=== PATIENT | female | born 1995 | race Caucasian/White ===

== ENCOUNTER 2022-11-26 20:24 | Emergency (ER) | payer BC, OTHER ==
[2022-11-26] MEDS ORDERED: Erythromycin Base 0.5% Oint 1 GM TUBE ONE (21:40)
== END 2022-11-26 21:45 | disposition home or self-care (01) ==
LOC: NAV ERS 20:24
DX: H10.31 Unspecified acute conjunctivitis, right eye (principal); I10 Essential (primary) hypertension
CPT/HCPCS: 99282

== ENCOUNTER 2023-01-14 12:49 | Emergency (ER) | payer BC, OTHER ==
[2023-01-14] MEDS ORDERED: Fluorescein Opthalmic Strip ONE (13:05)
[2023-01-14] MEDS ORDERED: Tetracaine 0.5% PF 4 ML BOT ONE (13:05)
== END 2023-01-14 13:50 | disposition home or self-care (01) ==
LOC: NAV ERS 12:49
DX: H16.001 Unspecified corneal ulcer, right eye (principal); H10.9 Unspecified conjunctivitis
CPT/HCPCS: 99283

== ENCOUNTER 2024-03-16 13:46 | Emergency (ER) | payer OTHER, SELFPAY ==
[2024-03-16] MEDS ORDERED: Dexamethasone 4 mg/ml Vial ONE (15:20)
[2024-03-16] MEDS ORDERED: Ketorolac Tromethamine 30 MG (1 mL) VIAL ONE (15:20)
[2024-03-16] MEDS ORDERED: Acetaminophen 500 MG TAB ONE (15:32)
== END 2024-03-16 17:01 | disposition home or self-care (01) ==
LOC: NAV ERS 13:46
DX: J10.1 Influenza due to other identified influenza virus with other respiratory manifestations (principal)
CPT/HCPCS: 71045; 87400; 87426; 96372; J1100; J1885

== ENCOUNTER 2024-04-01 17:59 | Emergency (ER) | payer OTHER ==
[2024-04-01] MEDS ORDERED: Ketorolac Tromethamine 30 MG (1 mL) VIAL ONE (18:24)
[2024-04-01] MEDS ORDERED: Sodium Chloride 0.9% 1,000 ML ONE (18:24)
[2024-04-01 18:41] LABS: #Basophils 0.1 thou/uL (0.0-0.2); #Eosinophils 0.3 thou/uL (0.0-0.7); #Monocytes 0.5 thou/uL (0.11-0.59); #Neutrophils 3.5 thou/uL (1.40-6.50); %Basophils 1.1 % (0.0-1.0); %Eosinophils 5.4 % (0.0-10.0); %Lymphocytes 31.4 % (21.0-51.0); %Monocytes 7.9 % (0.0-10.0); %Neutrophils 54.2 % (42.0-75.0); Hematocrit 47.5 % (36.0-47.0); Hemoglobin 15.7 g/dL (12.0-16.0); Mean Corpuscular HGB CONC 33.1 g/dL (32.0-36.0); Mean Corpuscular Hemoglobin 29.5 pg (27.0-31.0); Mean Platelet Volume 9.4 fL (7.4-10.4); Platelet Count 281 10x3/uL (130-400); RBC Distribution Width 11.2 % (11.5-14.5); Red Blood Cell (RBC) Count 5.33 mill/uL (4.20-5.40); White Blood Cell (WBC) Count 6.4 10x3/uL (4.8-10.8)
[2024-04-01 18:52] LABS: Bilirubin Negative (Negative); Blood, Urine Negative (Negative); Glucose, Urine (Dipstick) Negative (Negative); Ketone, Urine Negative (Negative); Leukocyte Trace (Negative); Nitrite Negative (Negative); Protein, Urine (Dipstick) Negative (Neg-Trace); Specific Gravity, Urine 1.015 (1.005-1.030); Urobilinogen 0.2 mg/dL (Less than 2)
[2024-04-01 18:55] LABS: Clarity Hazy (Clear)
[2024-04-01 19:02] LABS: ALT (SGPT) 64 U/L (8-55); AST (SGOT) 67 U/L (5-34); Albumin 3.9 g/dL (3.5-5.0); Alkaline Phosphatase 94 U/L (40-110); Anion Gap 16 mmol/L (10-20); BUN (Urea Nitrogen) 5 mg/dL (7.0-18.7); Bilirubin, Total 1.1 mg/dL (0.2-1.2); Calc. Creatinine Clearance 0 mL/min (70-130); Calcium 9.6 mg/dL (7.8-10.44); Carbon Dioxide 22 mmol/L (22-29); Chloride 104 mmol/L (98-107); Estimated GFR 121; Globulin 3.9 g/dL (2.4-3.5); Glucose 100 mg/dL (70-105); Magnesium 1.8 mg/dL (1.6-2.6); Protein, Total 7.8 g/dL (6.0-8.3); Sodium 138 mmol/L (136-145)
[2024-04-01 19:05] LABS: Pregnancy Test - Urine (BHCG) Negative (Negative); Pregu Control Background? CLEAR/WHITE (CLR/WHITE); Pregu Control Bar Appear? YES (CONTROL BAR); Specific Gravity 1.015 (1.002-1.036)
[2024-04-01 19:08] LABS: Bacteria/HPF 1+ HPF (None Seen); CAUTI Indications for Culture Fever or rigors; RBC/HPF 0-3 HPF (0-3); Squamous Epithelial 0-3 HPF (0-3)
[2024-04-01 19:09] LABS: Urine Culture Reflex No No
== END 2024-04-01 19:44 | disposition home or self-care (01) ==
LOC: NAV ERS 17:59
DX: J18.9 Pneumonia, unspecified organism (principal); I10 Essential (primary) hypertension
CPT/HCPCS: 71045; 80053; 81001; 81025; 83605; 83735; 85025; 96374; J1885; J7030

== ENCOUNTER 2024-04-12 15:06 | Emergency (ER) | payer OTHER ==
[2024-04-12] MEDS ORDERED: Ipratropium/Albuterol 3 ML NEB ONE (15:52)
[2024-04-12] MEDS ORDERED: Sodium Chloride 0.9% 1,000 ML ONE (15:53)
[2024-04-12 16:13] LABS: #Basophils 0.1 thou/uL (0.0-0.2); #Eosinophils 0.4 thou/uL (0.0-0.7); #Monocytes 0.4 thou/uL (0.11-0.59); #Neutrophils 2.6 thou/uL (1.40-6.50); %Basophils 1.7 % (0.0-1.0); %Eosinophils 8.1 % (0.0-10.0); %Lymphocytes 36.6 % (21.0-51.0); %Monocytes 6.6 % (0.0-10.0); Hematocrit 44.5 % (36.0-47.0); Hemoglobin 14.9 g/dL (12.0-16.0); Mean Corpuscular HGB CONC 33.5 g/dL (32.0-36.0); Mean Corpuscular Hemoglobin 29.6 pg (27.0-31.0); Mean Corpuscular Volume 88.4 fl (78.0-98.0); Mean Platelet Volume 9.2 fL (7.4-10.4); Platelet Count 252 10x3/uL (130-400); Red Blood Cell (RBC) Count 5.04 mill/uL (4.20-5.40); White Blood Cell (WBC) Count 5.5 10x3/uL (4.8-10.8)
[2024-04-12 16:28] LABS: ALT (SGPT) 78 U/L (8-55); AST (SGOT) 79 U/L (5-34); Albumin 3.5 g/dL (3.5-5.0); Alkaline Phosphatase 80 U/L (40-110); Anion Gap 15 mmol/L (10-20); BUN (Urea Nitrogen) 6 mg/dL (7.0-18.7); Bilirubin, Total 0.7 mg/dL (0.2-1.2); Calc. Creatinine Clearance 0 mL/min (70-130); Calcium 9.5 mg/dL (7.8-10.44); Carbon Dioxide 21 mmol/L (22-29); Chloride 106 mmol/L (98-107); Estimated GFR 120; Globulin 3.7 g/dL (2.4-3.5); Glucose 151 mg/dL (70-105); Potassium 3.6 mmol/L (3.5-5.1); Protein, Total 7.2 g/dL (6.0-8.3); Sodium 138 mmol/L (136-145)
[2024-04-12] MEDS ORDERED: Benzonatate 100 MG CAP ONE (16:54)
[2024-04-12] MEDS ORDERED: cefTRIAXone (ROCEPHIN) 1 GM VIAL ONE (16:54)
[2024-04-12] MEDS ORDERED: Sodium Chloride 0.9% 100 ML ONE (16:54)
[2024-04-12] MEDS ORDERED: methylPREDNISolone Sod Succ/PF 125 MG/2 ML VIAL ONE (16:54)
[2024-04-12 20:06] LABS: Troponin I Less than 0.010 ng/mL (< 0.028)
== END 2024-04-12 17:45 | disposition home or self-care (01) ==
LOC: NAV ERS 15:06
DX: J18.0 Bronchopneumonia, unspecified organism (principal); R00.0 Tachycardia, unspecified; I10 Essential (primary) hypertension; Z79.899 Other long term (current) drug therapy
CPT/HCPCS: 36415; 71046; 80053; 83605; 83880; 84484; 85025; 85379; 87040; 87428; 93005; 94640; 96361; 96365; 96375; J0696; J2919; J7030; J7620